=== PATIENT | female | born 1945 | race Caucasian/White ===

== ENCOUNTER 2017-03-01 18:13 | Outpatient (CLI) ==
[2017-03-01 18:35] LABS: BILIRUBIN,URINE Negative (NEGATIVE); KETONES,URINE Negative (NEGATIVE); LEUKOCYTE ESTERASE ,URINE 3+ (NEGATIVE); NITRITE,URINE Negative (NEGATIVE); PH,URINE 6.5 (5-9); PROTEIN,URINE 2+ (NEGATIVE); URINE, BLOOD Trace-intact (NEGATIVE)
[2017-03-01 18:40] LABS: ADD URINE MICROSCOPIC YES
[2017-03-01 18:41] LABS: BACTERIA,URINE 4+ (NOT PRESENT)
[2017-03-01 18:52] LABS: ALANINE AMINOTRANSFERASE < 6 U/L (12-78); ALBUMIN 2.4 g/dL (3.4-5.0); ALBUMIN/GLOBULIN RATIO 0.89; ALKALINE PHOSPHATASE 31 U/L (53-141); ANION GAP 17.4; ASPARTATE AMINO TRANSFERASE 8 U/L (15-37); BILIRUBIN,TOTAL 0.13 mg/dL (0.00-1.20); BLOOD UREA NITROGEN 10 mg/dL (7-18); BUN/CREATININE RATIO 13.88; CALCIUM 8.5 mg/dL (8.2-10.2); CARBON DIOXIDE 30 mmol/L (23-31); CHLORIDE 97 mmol/L (98-107); CHOL/HDL RATIO 4.4 (4.5-5.5); CHOLESTEROL 223 mg/dL (0-200); CREATININE 0.72 mg/dL (0.60-1.30); GLUCOSE 112 mg/dL (82-115); HDL CHOLESTEROL 51 mg/dL (35-80); POTASSIUM 4.4 mmol/L (3.5-5.10); SODIUM 140 mmol/L (136-145); TOTAL PROTEIN 5.1 g/dL (5.8-8.1); TRIGLYCERIDES 165 mg/dL (30-150); VLDL CHOLESTEROL 33 mg/dL (2-30)
== END 2017-03-01 18:14 | disposition home or self-care (01) ==
LOC: NONPT 18:13
PROVIDERS: ATTEND Family Medicine
DX: R60.0 Localized edema (principal); E11.9 Type 2 diabetes mellitus without complications; R82.90 Unspecified abnormal findings in urine
CPT/HCPCS: 80053; 80061; 81001; 83036; 87086; 87186

== ENCOUNTER 2017-04-07 15:29 | Outpatient (CLI) ==
[2017-04-07 15:56] LABS: BASOPHILS % (AUTO) 0.3 % (0.0-3.0); EOSINOPHILS # (AUTO) 0.2 K/ul (0.0-0.7); EOSINOPHILS % (AUTO) 2.9 % (0.0-7.0); HEMATOCRIT 25.7 % (37.0-47.0); HEMOGLOBIN 8.9 g/dl (12.0-16.0); IMMATURE GRANULOCYTE % (AUTO) 0.3 % (0.0-5.0); LYMPHOCYTES # (AUTO) 1.8 K/uL (0.60-3.4); LYMPHOCYTES % (AUTO) 24.6 (10.0-50.0); MEAN CORPUSCULAR HEMOGLOBIN 32.4 pg (27.0-31.0); MEAN CORPUSCULAR HGB CONC 34.6 (31.8-35.4); MEAN CORPUSCULAR VOLUME 93.5 fl (81.0-99.0); MONOCYTES # (AUTO) 0.3 K/uL (0.4-2.0); MONOCYTES % (AUTO) 4.3 (0-10); NEUTROPHILS # (AUTO) 4.8 K/ul (2.0-6.9); NEUTROPHILS % (AUTO) 67.6; PLATELET COUNT 327 10^3/uL (140-440); RED BLOOD COUNT 2.75 10^6/ul (4.20-5.40); WHITE BLOOD COUNT 7.14 K/ul (4.6-10.2)
[2017-04-07 16:35] LABS: ALBUMIN 1.8 g/dL (3.4-5.0); ALBUMIN/GLOBULIN RATIO 0.64; ANION GAP 13.7; BILIRUBIN,TOTAL 0.1 mg/dL (0.00-1.20); BUN/CREATININE RATIO 10.84; CALCIUM 7.4 mg/dL (8.2-10.2); CREATININE 0.83 mg/dL (0.60-1.30); FERRITIN 28.26 ng/mL (4.63-204.00); POTASSIUM 3.7 mmol/L (3.5-5.10); TOTAL PROTEIN 4.6 g/dL (5.8-8.1)
== END 2017-04-07 15:30 | disposition home or self-care (01) ==
LOC: NONPT 15:29
PROVIDERS: ATTEND Family Medicine
DX: E11.9 Type 2 diabetes mellitus without complications (principal); I10 Essential (primary) hypertension; N39.0 Urinary tract infection, site not specified; Z79.82 Long term (current) use of aspirin
CPT/HCPCS: 80053; 82607; 82728; 82746; 83540; 83550; 85025